=== PATIENT | male | born 1990 | race Caucasian/White ===

== ENCOUNTER 2020-12-06 10:56 | Emergency (ER) | payer MEDICAID ==
[2020-12-06] MEDS ORDERED: Sodium Chloride 0.9% 1000 ML 1,000 ML IV STA (11:01)
[2020-12-06] MEDS ORDERED: Adacel Vial IM ONE ×2 (11:01→11:24)
[2020-12-06] MEDS ORDERED: Zofran 4 MG/2 ML VIAL IV ONE (11:02)
[2020-12-06] MEDS ORDERED: MORPHINE SULFATE 4 MG INJ IV ONE (11:02)
[2020-12-06] MEDS ORDERED: CLINDAMYCIN-D5W 900 MG/50 ML*** 900 MG/50 ML BAG IV STA (11:03)
[2020-12-06] MEDS ORDERED: MORPHINE SULFATE 4 MG INJ ONE (11:04)
[2020-12-06] MEDS ORDERED: Zofran 4 MG/2 ML VIAL ONE (11:04)
[2020-12-06] MEDS ORDERED: Sodium Chloride 0.9% 1000 ML 1,000 ML ONE ×2 (11:04→11:46)
--- NOTE | 2020-12-06 11:12 | ERPHSYRPT ---
- History of Present Illness Time Seen by Provider: 12/06/20 11:15 Source: patient Physician History: Patient is a 30-year-old male presents to our emergency department for evaluation and treatment of laceration to the proximal aspect of his left knee. Patient states he was using a circular saw when he accidentally cut himself. Injury occurred just prior to arrival. Last tetanus is unknown. Patient complains of pain that is localized to the area of injury. Pain described as an ache. No radiation. Pain worse with movement and palpation. Pain improved with rest. No other injuries reported. Patient is otherwise healthy. He voices no other complaints or concerns at this time. Patient had a belt as a tourniquet upon arrival. This was removed. No indication for tourniquet at th is time. Timing/Duration: today Severity: moderate Modifying Factors: Improves With: movement Associated Symptoms: denies symptoms Allergies/Adverse Reactions: Penicillins Allergy (Verified 12/06/20 11:01) Home Medications: No Reportable Medications [No Reported Medications] 12/06/20 [History] - Review of Systems Constitutional: No Symptoms, No Fever, No Chills Eyes: No Symptoms Ears, Nose, & Throat: No Symptoms Respiratory: No Symptoms, No Cough, No Dyspnea Cardiac: No Symptoms, No Chest Pain, No Edema, No Syncope Abdominal/Gastrointestinal: No Symptoms, No Abdominal Pain, No Nausea, No Vomiting, No Diarrhea Genitourinary Symptoms: No Symptoms, No Dysuria Musculoskeletal: No Symptoms, No Back Pain, No Neck Pain Skin: No Symptoms, No Rash Neurological: No Symptoms, No Dizziness, No Focal Weakness, No Sensory Changes Psychological: No Symptoms Endocrine: No Symptoms Hematologic/Lymphatic: No Symptoms Immunological/Allergic: No Symptoms All Other Systems: Reviewed and Negative - Nursing Vital Signs Nursing Vital Signs: Initial Vital Signs Temperature 98.0 F 12/06/20 11:04 Pulse Rate 72 12/06/20 11:04 Respiratory Rate 18 12/06/20 11:04 Blood Pressure 152/81 12/06/20 11:04 O2 Sat by Pulse Oximetry 100 12/06/20 11:04 Pain Scale Pain Intensity 10 - Physical Exam General Appearance: no apparent distress, alert Eye Exam: PERRL/EOMI, eyes nml inspection Ears, Nose, Throat Exam: normal ENT inspection, TMs normal, pharynx normal, moist mucous membranes Neck Exam: normal inspection, non-tender, supple, full range of motion Respiratory Exam: normal breath sounds, lungs clear, No respiratory distress Cardiovascular Exam: regular rate/rhythm, normal heart sounds, normal peripheral pulses Gastrointestinal/Abdomen Exam: soft, normal bowel sounds, No tenderness, No mass Back Exam: normal inspection, normal range of motion, No CVA tenderness, No vertebral tenderness Extremity Exam: normal inspection, normal range of motion, pelvis stable, other (9 cm x 3 cm laceration to the suprapatellar region of the left knee. The extremity is neurovascularly intact distally.) Neurologic Exam: alert, oriented x 3, cooperative, normal mood/affect, nml cerebellar function, nml station & gait, sensation nml, No motor deficits Skin Exam: normal color, warm, dry, No rash Lymphatic Exam: No adenopathy SpO2 Interpretation: normal SpO2: 100 O2 Delivery: Room Air - Course Nursing assessment & vital signs reviewed: Yes - Radiology Exams Knee X-ray Interpretation: Teleradiologist Report (Anterior suprapatellar soft tissue swelling laceration with subcutaneous emphysema. No other bony articular or soft tissue abnormalities.) Ordered Tests: Active Orders 24 hr Category Date Time Status KNEE (1 OR 2 VIEW) Stat Exams 12/06/20 11:03 Completed CBC W DIFF Stat Lab 12/06/20 11:05 Completed CMP Stat Lab 12/06/20 11:05 Completed ETHYL ALCOHOL Stat Lab 12/06/20 11:08 Completed Manual Differential NC Stat Lab 12/06/20 11:05 Completed UA W/RFX UR CULTURE Stat Lab 12/06/20 11:05 Ordered Urine Triage Profile Stat Lab 12/06/20 11:05 Ordered Medication Summary Generic Name Dose Route Start Last Admin Trade Name Freq PRN Reason Stop Dose Admin Sodium Chloride 1,000 mls @ 999 mls/hr 12/06/20 11:01 12/06/20 11:20 Sodium Chloride 0.9% 1000 Ml IV 12/06/20 12:01 999 mls/hr .Q1H1M STA Administration Potassium Chloride 20 meq in 100 mls @ 50 mls/hr 12/06/20 11:45 Potassium Chloride 20 Meq In Water 100ml IV 12/06/20 15:44 Q2H LEIUD Discontinued Medications Generic Name Dose Route Start Last Admin Trade Name Freq PRN Reason Stop Dose Admin Diphtheria/Tetanus/Acell Pertussis 0.5 ml 12/06/20 11:01 12/06/20 11:25 Adacel Vial IM 12/06/20 11:02 0.5 ml .ONCE ONE Administration Diphtheria/Tetanus/Acell Pertussis Confirm 12/06/20 11:24 Adacel Vial Administered 12/06/20 11:25 Dose 0.5 ml IM .STK-MED ONE Clindamycin HCl/Dextrose 900 mg in 50 mls @ 100 mls/hr 12/06/20 11:03 12/06/20 11:28 Clindamycin-D5w 900 Mg/50 Ml IV 12/06/20 11:32 100 mls/hr STAT STA 100 mls/hr Administration Sodium Chloride Confirm 12/06/20 11:04 Sodium Chloride 0.9% 1000 Ml Administered 12/06/20 11:05 Dose 1,000 mls @ ud .ROUTE .STK-MED ONE Clindamycin HCl/Dextrose Confirm 12/06/20 11:24 Clindamycin-D5w 900 Mg/50 Ml Administered 12/06/20 11:25 Dose 900 mg in 50 mls @ ud IV .STK-MED ONE Morphine Sulfate 4 mg 12/06/20 11:02 12/06/20 11:19 Morphine Sulfate 4 Mg Inj IV 12/06/20 11:03 4 mg STAT ONE Administration Morphine Sulfate Confirm 12/06/20 11:04 Morphine Sulfate 4 Mg Inj Administered 12/06/20 11:05 Dose 4 mg .ROUTE .STK-MED ONE Ondansetron HCl 4 mg 12/06/20 11:02 12/06/20 11:19 Zofran 4 Mg/2 Ml Vial IV 12/06/20 11:03 4 mg STAT ONE Administration Ondansetron HCl Confirm 12/06/20 11:04 Zofran 4 Mg/2 Ml Vial Administered 12/06/20 11:05 Dose 4 mg .ROUTE .STK-MED ONE Lab/Rad Data: Laboratory Result Diagrams 12/06/20 11:05 12/06/20 11:05 Laboratory Results 12/06/20 12/06/20 12/06/20 Range/Units 11:08 11:05 11:05 WBC 11.8 H (4.0-10.5) K/mm3 RBC 5.59 (4.1-5.6) M/mm3 Hgb 15.1 (12.5-18.0) gm/dl Hct 45.1 (42-50) % MCV 80.7 (78-100) fl MCH 27.0 (26-32) pg MCHC 33.5 (32-36) g/dl RDW 13.4 (11.5-14.0) % Plt Count 257 (150-450) K/mm3 MPV 9.6 (7.5-11.0) fl Sodium 142 (137-145) mmol/L Potassium 2.6 L* (3.5-5.1) mmol/L Chloride 103 (98-107) mmol/L Carbon Dioxide 25 (22-30) mmol/L Anion Gap 17.2 H (5-15) MEQ/L BUN 14 (9-20) mg/dL Creatinine 0.87 (0.66-1.25) mg/dL Estimated GFR > 60.0 ML/MIN Glucose 136 H (74-106) mg/dL Calcium 9.8 (8.4-10.2) mg/dL Total Bilirubin 0.30 (0.2-1.3) mg/dL AST 41 (17-59) U/L ALT 28 (0-50) U/L Alkaline Phosphatase 79 (38-126) U/L Serum Total Protein 7.5 (6.3-8.2) g/dL Albumin 4.5 (3.5-5.0) g/dL Ethyl Alcohol < 10 (0-10) mg/dL - Progress Progress: improved Progress Note: 12/06/20 11:41 Case discussed with trauma doctor at [facility]. Patient accepted his transfer. Plan of care discussed with patient. He agrees to transfer to [facility] for further evaluation and treatment. Patient will be transferred as the laceration will require surgical evaluation and repair. Patient received IV fluids. Morphine administered for pain. Zofran for nausea. Potassium was low. K rider ordered. Tetanus updated. Clindamycin infused. 12/06/20 11:43 Counseled pt/family regarding: lab results, diagnosis, rad results - Departure Departure Disposition: Transfer Clinical Impression: Knee laceration Condition: Stable Critical Care Time: No Referrals: Provider,Unknown [Primary Care Provider] -
[2020-12-06 11:16] VITALS: O2SAT 100
[2020-12-06 11:18] VITALS: BP 152/81; PULSE 72
[2020-12-06 11:19] LABS: Hematocrit 45.1 % (42-50); Hemoglobin 15.1 gm/dl (12.5-18.0); Mean Cell Volume 80.7 fl (78-100); Mean Corpuscular Hgb Concent. 33.5 g/dl (32-36); Mean Platelet Volume 9.6 fl (7.5-11.0); Platelet Count 257 K/mm3 (150-450); Red Blood Count 5.59 M/mm3 (4.1-5.6); Red Cell Distribution Width 13.4 % (11.5-14.0); White Blood Count 11.8 K/mm3 (4.0-10.5)
[2020-12-06] MEDS ORDERED: CLINDAMYCIN-D5W 900 MG/50 ML*** 900 MG/50 ML BAG IV ONE (11:24)
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
[2020-12-06 11:32] LABS: ALBUMIN 4.5 g/dL (3.5-5.0); ALKALINE PHOSPHATASE 79 U/L (38-126); ANION GAP 17.2 MEQ/L (5-15); BLOOD UREA NITROGEN 14 mg/dL (9-20); CHLORIDE 103 mmol/L (98-107); Calcium 9.8 mg/dL (8.4-10.2); Carbon Dioxide 25 mmol/L (22-30); Creatinine 1 0.87 mg/dL (0.66-1.25); EST GLOMERULAR FILTRATION RATE > 60.0 ML/MIN; Glucose 136 mg/dL (74-106); SGOT/AST 41 U/L (17-59); SGPT/ALT 28 U/L (0-50); SODIUM 142 mmol/L (137-145); Total Protein 7.5 g/dL (6.3-8.2)
[2020-12-06 11:34] LABS: Potassium 2.6 mmol/L (3.5-5.1)
[2020-12-06] MEDS ORDERED: POTASSIUM CHLORIDE 20 mEq IN WATER 100ML 100 ML IV ONE (11:43)
[2020-12-06] MEDS ORDERED: POTASSIUM CHLORIDE 20 mEq IN WATER 100ML 20 MEQ/100 ML BAG IV SCH (11:45)
[2020-12-06 11:53] LABS: Appearance CLEAR (CLEAR); Bilirubin NEGATIVE (NEGATIVE); Blood NEGATIVE Ery/ul (0-5); Glucose NEGATIVE (NEGATIVE); Ketones NEGATIVE (NEGATIVE); Leukocyte Esterase NEGATIVE (NEGATIVE); Mucus SLIGHT /HPF (NEGATIVE); Nitrite NEGATIVE (NEGATIVE); Protein,Urine Dip 100 (Negative); Specific Gravity 1.024 (1.005-1.025); Urobilinogen 4 mg/dL (0-1); WBC 0-2 /HPF (0-5)
[2020-12-06 12:07] LABS: Barbiturate,Urine NEGATIVE (NEGATIVE); Benzodiazepine,Urine NEGATIVE (NEGATIVE); Cocaine,Urine NEGATIVE (NEGATIVE); Methadone,Urine NEGATIVE (NEGATIVE); Opiate,Urine POSITIVE (NEGATIVE); PCP,Urine NEGATIVE (NEGATIVE); THC,Urine POSITIVE (NEGATIVE)
[2020-12-06 12:28] LABS: Amphetamine,Urine POSITIVE (NEGATIVE)
[2020-12-06 12:54] LABS: Lymphocytes 35 % (24-44); Monocyte 2 % (0.0-12.0); Neutrophils 63 % (36.-66.); Platelet Estimate NORMAL (NORMAL); Total Cells Counted 100
== END 2020-12-06 12:06 | disposition short-term general hospital (02) ==
LOC: ED 10:56
DX: W31.2XXA Contact with powered woodworking and forming machines, initial encounter (principal); Y93.9 Activity, unspecified; Y92.9 Unspecified place or not applicable
CPT/HCPCS: 36415; 73560; 80053; 80307; 81001; 85025; 90471; 90715; 96360; 96365; 96367; 96374; 96375; 99285; J2270; J2405; J3480; G0480